=== PATIENT | male | born 1950 | race Caucasian/White ===

== ENCOUNTER 2017-05-17 18:05 | Emergency (ER) | payer MEDICARE ==
[~2017-05-17] VITALS: Ht 172.7 cm; Wt 80.0 kg
[2017-05-18 05:56] VITALS: BP 132/86
== END 2017-05-18 06:03 | disposition home or self-care (01) ==
LOC: ER 19:38
DX: S91.311D Laceration without foreign body, right foot, subsequent encounter (principal); W25.XXXD Contact with sharp glass, subsequent encounter; Y92.89 Other specified places as the place of occurrence of the external cause; Y99.8 Other external cause status
CPT/HCPCS: 73630; 99284